=== PATIENT | female | born 1940 | race Caucasian/White ===

== ENCOUNTER 2016-12-17 07:59 | Inpatient (IN) | payer MEDICARE, OTHER ==
[~2016-12-17 07:59] MED LIST: MORPHINE SULFATE 15 MG TABLET.SA PO PRN; ceFAZolin SODIUM 1 GM VIAL IV PRN
[2016-12-17] MEDS ORDERED: FLU VACC QS2017-18(6MOS UP)/PF 60 MCG/0.5 ML SYRINGE IM ONE (08:23)
--- NOTE | 2016-12-17 08:28 | PREOP NOTE ---
Preoperative Progress Note - Preoperative Changes Changes to Preop Condition?: No Changes
[2016-12-17] MEDS: RINGER'S SOLUTION,LACTATED 1,000 ML IV PRN ×2 (08:31→09:35)
[2016-12-17] MEDS ORDERED: RINGER'S SOLUTION,LACTATED 1,000 ML IV ONE ×2 (10:10→10:50)
[2016-12-17] MEDS: TRANEXAMIC ACID 1,000 MG in NORMAL SALINE 100 ML IV PRN ×2 (11:05→11:10)
[2016-12-17] MEDS: ROPIVACAINE HCL/PF 100 MG, EPINEPHrine 0.2 MG, KETOROLAC TROMETHAMINE 30 MG in NORMAL S... IJ PRN ×2 (11:10→11:12)
[2016-12-17] MEDS ORDERED: ONDANSETRON HCL/PF 2 MG/ML VIAL IV PRN (11:45)
[2016-12-17] MEDS ORDERED: diphenhydrAMINE HCL 50 MG/ML VIAL IV PRN (11:45)
[2016-12-17] MEDS ORDERED: PROMETHAZINE HCL 5 MG in DEXTROSE 5 % IN WATER 50 ML IV PRN ×2 (11:45)
[2016-12-17] MEDS ORDERED: ZOLPIDEM TARTRATE 5 MG TABLET PO PRN (11:45)
[2016-12-17] MEDS ORDERED: ACETAMINOPHEN 500 MG TABLET PO PRN (11:45)
[2016-12-17] MEDS ORDERED: HYDROmorphone HCL 1 MG/ML DISP.SYRIN IV PRN (11:45)
[2016-12-17] MEDS ORDERED: MAG HYDROX/ALUMINUM HYD/SIMETH 30 ML UDC PO PRN (11:45)
[2016-12-17] MEDS ORDERED: MAGNESIUM HYDROXIDE 30 ML UDC PO PRN (11:45)
--- NOTE | 2016-12-17 11:49 | OR ---
Operative Report - Dictated Report Narrative: Date: 12/17/2016 Preoperative diagnosis: Right Knee degenerative joint disease. Postoperative diagnosis: Right Knee degenerative joint disease. Procedure: Right Total knee arthroplasty. Surgeon: Edwardo Hernandez M.D. [employer]orative Greens Cutter: Asim Soliman PA-C Anesthesia: Spinal with regional block and local periarticular joint injection. Complications: None Specimens: Bone for disposal. Estimated blood loss: Minimal. Tourniquet time: 92 Minutes at 325 millimeters of mercury. Retained implants: Depuy Attune size 7 right lugged cemented posterior stabilized femoral component. Size 6 fixed-bearing cemented tibial platform. 7 by 5 millimeter posterior stabilized cross-linked tibial insert. 38 millimeter medialized patella button. Indications: Mrs. Hurtado is a 76-year-old female who has had long-standing right knee pain and arthrosis. This patient was followed in my clinic for period of time with significant complaints of right knee pain consistent with arthritic changes. She had failed conservative measures including, but not limited to, activity modification, passage of time, medications, and other conservative measures. Patient wished to proceed with surgical treatment. The risks, benefits, and alternatives were discussed in clinic. The risks of , blood clots, bleeding, infection, nerve/tendon blood vessel/ injury, malposition of components, intraoperative fracture, postoperative limited range of motion, persistent pain, failure of components, and need for additional procedures. Patient wished to proceed consent was obtained after answering all questions. Procedure: After marking the correct extremity on the floor, the patient was taken to the operating room. A timeout was performed. IV antibiotics consisting of Ancef were administered prior to the procedure. A regional followed by spinal anesthetic was induced by anesthesia, per my request, on the operative table with all bony prominences well-padded. Vera catheter was placed, and a bump was placed under the operative side buttock. SCDs and KETTY hose were utilized on the nonoperative leg. A well-padded tourniquet was applied to the operative thigh. The operative leg was then pre-scrubbed with alcohol prepped, and draped in a standard sterile fashion. After exsanguinating the extremity with an Esmarch bandage, the tourniquet was inflated. After marking out the anterior knee for standard incision centered over the patella, the skin was incised and dissected down to the joint retinaculum. The joint retinaculum was marked out as well as the horizontal axis of the patella, and a standard medial parapatellar arthrotomy was then made. The most proximal aspect of the quadriceps tendon and the patella tendon insertion were protected from release. A partial synovectomy was performed as well as a resection of the infrapatellar fat pad. The distal femoral fat pad proximal to the trochlea was also resected using cautery. The soft tissues were elevated off the medial aspect of the proximal tibia using a Leblanc elevator ensuring that we did not transect the medial collateral ligament. Upon initial evaluation range of motion was approximately 10 degrees to 130 degrees of flexion. There were signs of advanced arthrosis in the medial, lateral, and patellofemoral joint spaces. There were large marginal osteophytes which were removed with a rongeur. The knee was hyperflexed and the patella was tucked laterally. Protecting the surrounding soft tissues with Homans, an entry drill was placed down the femoral canal using Whitesides line for guidance into the entry point. The intramedullary femoral alignment neema was utilized in order to cut the distal femur in 5 degrees of valgus resecting 12 millimeters of bone. Next the distal femur was sized to a size 7. A posterior referencing guide was utilized to place the distal femoral cutting block in 3 degrees of external rotation. This was pinned into place. The rotation was confirmed both visually and based on anatomic landmarks. The 4 in 1 cutting jig of the appropriate size was utilized in order to make all bony cuts. The angle wing was used to ensure no notching. Retractors were utilized in order to protect surrounding soft tissues. This cut did not result in any excessive notching. We then cut the box centered over the distal femur. This allowed for resection of the anterior and posterior cruciate ligaments. I then turned my attention to the preparation of the tibia. Using an extra medullary tibial alignment neema, 4 millimeters of bone was resected off the medial articular surface. This was made perpendicular to the mechanical axis of the joint with the alignment neema centered over the ankle mortise. The alignment neema was checked and was noted to be parallel to the mechanical axis, centered over the medial one third of the tibial tubercle, paralleling the anterior surface of the tibia. We then turned our attention to the remaining meniscus and soft tissues. These were removed while protecting the surrounding ligaments and soft tissues. The marginal osteophytes off the anterior, posterior, medial, lateral aspects of the femur and tibia were removed. The tibia was sized out to a size 6. Next the tibia was drilled and punched in an externally rotated position. Next the trial femur and a series of tibial inserts were utilized in order to allow for full extension and maximal flexion. It was found that a 5 millimeter insert gave the best range of motion and stability at multiple flexion points as well as at full extension there was less than 2 mm of gapping both medially and laterally. There is minimal anterior translation with the knee at 90 degrees of flexion and no signs of being able to dislocate the knee. The patella was then prepared. The initial thickness was 21 millimeters. This was reamed down to 11 millimeters parallel to the anterior surface of the patella. It was sized out to a size 38 medialized patella button. This was then drilled and trialed. Without any medial restraint the patella tracked appropriately and did not sublux or dislocate. At this point, it was felt these were the appropriate sized implants, and all trials were removed. The standard periarticular joint injection consisting of ropivacaine, Toradol, and epinephrine were injected into the periarticular joint tissues. The bony surfaces were thoroughly irrigated with a pulsatile- suction saline irrigation device. A bone plug from the prior resected anterior chamfer cut was placed into the drill hole at the distal femur. The bony surfaces were then dried in preparation for placement of the implants. The cement was vacuum mixed per the grape cutter's instructions. The cement was placed on the dry bony surfaces and posterior aspect of the implants. The implants were impacted into place, removing all extruded cement. At this point anesthesia administered tranexamic acid per protocol intravenously. The knee was placed in extension with axial loading with the trial insert while the cement cured. Once the cement cured, all remaining extruded cement was removed. The knee was placed through a range of motion with the trial insert to ensure appropriate range of motion and stability. Final range of motion was approximately 0 to 120 degrees. The knee was again thoroughly irrigated with pulsatile saline lavage. The final polyethylene insert was then impacted into place ensuring no retained soft tissues. The remaining periarticular joint injection was injected. A medium Hemovac drain was placed exiting superior laterally. The knee was then placed over a triangle and the arthrotomy was closed with interrupted #1 Vicryl after thoroughly irrigating the joint. The deep and subcutaneous tissues were closed with interrupted 0 and 3-0 Vicryl respectively. Skin was closed with a running subcutaneous 3-0 Monocryl and Prineo Dermabond dressing. 4 x 4's, Sof-Rol, and a full leg Evgeny wrap were applied. All sponge, needle, blade, and instrument counts were correct prior to closing the wounds. Postoperative condition: The patient was awoken and transferred to the postanesthesia care unit in stable condition. Plan is to be admitted to the inpatient medical/surgical floor postoperatively for 24 hours of IV antibiotics , physical therapy, occupational therapy, and medical comanagement. Patient will be weightbearing as tolerated with range of motion as tolerated. DVT prophylaxis will be with SCDs, KETTY hose, and pharmacological anticoagulation. Anticipated hospital stay is approximately 2-4 days.
[2016-12-17] MEDS: DEXTROSE 5%-LACTATED RINGERS 1,000 ML IV PRN ×2 (12:52→22:12)
[2016-12-17] MEDS: KETOROLAC TROMETHAMINE 15 MG/ML VIAL IV SCH ×2 (12:53→17:51)
[2016-12-17] MEDS: ceFAZolin SODIUM 1 GM in DEXTROSE 5 % IN WATER 100 ML IV SCH ×4 (13:56→19:44)
[2016-12-17] MEDS: MORPHINE SULFATE 15 MG TABLET.SA PO SCH (20:42)
[2016-12-17] MEDS: SENNOSIDES/DOCUSATE SODIUM 1 TAB TABLET PO SCH (20:43)
[2016-12-18] MEDS: KETOROLAC TROMETHAMINE 15 MG/ML VIAL IV SCH ×4 (00:20→20:03)
[2016-12-18] MEDS: ceFAZolin SODIUM 1 GM in DEXTROSE 5 % IN WATER 100 ML IV SCH ×2 (01:27)
[2016-12-18 05:47] LABS: Hematocrit 33.1 % (37.0-47.0); Hemoglobin 10.6 gm/dL (12.5-16.0); Mean Cell Volume 89.9 fl (78-100); Mean Corpuscular Hemoglobin 28.8 pg (27-31); Mean Platelet Volume 9.9 fl (6.0-9.5); Platelet Count 223 K/mm3 (150-450); Red Blood Count 3.68 M/mm3 (4.2-5.4); Red Cell Distribution Width 12.9 % (11.5-14.0); White Blood Count 7.9 K/mm3 (4.0-10.5)
[2016-12-18 06:00] LABS: Anion Gap 8.8 mmol/L (6.8-13.8); BUN/Creatinine Ratio 11.5 (9.0-21.6); Carbon Dioxide 28.7 mmol/L (24-32.6); Estimated Creat Clear 60.6; Potassium 4.5 mmol/L (3.4-4.6)
[2016-12-18] MEDS: LEVOTHYROXINE SODIUM 75 MCG TABLET PO SCH (06:44)
--- NOTE | 2016-12-18 07:59 | PN ---
Subjective - Date and Time Seen Date: 12/18/16 Time: 07:57 Subjective Narrative: Subjective: Reports pain is well-controlled. Was able to get to the chair with therapy. Pain is well-controlled. Voiding without any complications. Tolerating by mouth intake. Denies any nausea or vomiting. Denies calf pain. Slept well. Physical exam: Alert and oriented to person, place and time Right lower Extremity: Palpable dorsalis pedis pulse. Sensation grossly intact to light touch. Dressings clean and dry. Able to flex and extend ankle and toes. No excessive drainage. Calf and thigh are soft and nontender. Assessment: Postop day 1 status post right total knee arthroplasty. Plan: Continue with physical and occupational therapy weightbearing as tolerated. Continue with anticoagulation. 24 hours postoperative prophylactic antibiotics. Pain control with goal to rely on oral medications. Continue bowel regimen. Will need 6 weeks with walker or assitive device to protect joint while ambulating during the recovery process. Discharge planning. Discontinue drain and Vera catheter. Repeat labs in a.m. Objective - Vitals Vitals: Last Vital Signs Temp 36.5 C 12/18/16 07:02 Pulse 72 12/18/16 07:02 Resp 18 12/18/16 07:02 BP 129/62 12/18/16 07:02 Pulse Ox 99 12/18/16 07:02 - Abnormal Lab Findings Abnormal Lab Findings: Abnormal Lab Results 12/18/16 12/18/16 Range/Units 05:20 05:20 RBC 3.68 L (4.2-5.4) M/mm3 Hgb 10.6 L (12.5-16.0) gm/dL Hct 33.1 L (37.0-47.0) % MPV 9.9 H (6.0-9.5) fl Sodium 143 H (132-142) mmol/L Plasma Sodium 143 H (130-142) mmol/L Chloride 110 H (97-106) mmol/L Random Glucose 114 H (70-110) mg/dL Cauti Physician Documentation - Urinary Catheter Management Urethral (Vera) Date of Insertion: 12/17/16 Time of Insertion: 10:05 Assessment/Plan - Problems/Diagnosis (1) Status post total right knee replacement Problem: Acute (2) Acute blood loss anemia Problem: Acute (3) Hyperlipidemia Problem: Chronic (4) Hypothyroid Problem: Chronic
[2016-12-18] MEDS: MORPHINE SULFATE 15 MG TABLET.SA PO SCH ×2 (08:12→20:55)
[2016-12-18] MEDS: POTASSIUM CHLORIDE 10 MEQ TABLET.SA PO SCH (08:13)
[2016-12-18] MEDS: FUROSEMIDE 20 MG TABLET PO SCH (08:13)
[2016-12-18] MEDS: LORATADINE 10 MG TABLET PO SCH (08:13)
--- NOTE | 2016-12-18 10:09 | OR ---
Anesthesia Procedure Note - Anesthesia Procedure Note Narrative: Vital Signs - Last Taken Temp 36.5 C 12/18/16 07:02 Pulse 72 12/18/16 08:13 Resp 18 12/18/16 07:02 BP 129/62 12/18/16 08:13 Pulse Ox 99 12/18/16 07:02 O2 Oxygen Delivery Method Room Air 12/18/16 10:06 ANESTHESIA PROCEDURE NOTE Date of procedure: 12/17/2016. Time of procedure: . Performed by: Nilson Narvaez CRNA Property Utilization Officer: Kiera Levi RN . Preprocedure diagnosis: Right total knee arthroplasty. Desire for postoperative analgesia.. Post procedure diagnosis: Same. Procedure: Right ultrasound-guided femoral nerve block. Indications: Postoperative analgesia.. Findings: Patient brought to operating room #[address] in a supine position. Patient was sedated. Right femoral groin area was prepped with ChloraPrep. Right femoral nerve was identified using ultrasound. 22-gauge 2 inch Stimuplex regional block needle was directed through ultrasound guidance and the nerve stimulator to confirm needle placement near the femoral nerve. A total of 30 mL of 0.25% Marcaine with epinephrine 1 200,000 was injected around the femoral nerve. Adequate spread of local anesthetic was observed. EBL: Minimal. Fluids: N/A. Specimen: N/A. Post procedure condition: The patient tolerated the procedure well. No complications were noted. Thank you for this consultation Nilson Narvaez CRNA
[2016-12-18] MEDS: ENOXAPARIN SODIUM 40 MG/0.4 ML SYRG SC SCH (11:52)
--- NOTE | 2016-12-18 15:31 | PN ---
Subjective - Date and Time Seen Date: 12/18/16 Time: 14:51 Subjective Narrative: POD #1 Patient seen at bedside at approximately 8:45 AM. Doing well, pain under control, did not any PRN meds; had ambulated 30 feet last evening and 50 feet this morning. Objective - Review of Systems Respiratory: Denies: Cough, Shortness of Breath Cardiac: Denies: Chest Pain, Edema Abdominal: Denies: Nausea, Vomiting - Vitals Vitals: Vital Signs Temp 37.1 C 12/18/16 14:43 Pulse 72 12/18/16 14:43 Resp 18 12/18/16 14:43 BP 93/71 12/18/16 14:43 Pulse Ox 97 12/18/16 14:43 - Abnormal Lab Findings Abnormal Lab Findings: Laboratory Tests 12/18/16 05:20 WBC 7.9 Hgb 10.6 L Hct 33.1 L Plt Count 223 12/18/16 05:20 Plasma Sodium 143 H Potassium 4.5 D Chloride 110 H Carbon Dioxide 28.7 BUN 9 D Creatinine 0.78 Est GFR (Non-Af Amer) 77 Random Glucose 114 H Calcium 9.0 - Exam Constitutional: Present: Elderly - alert and oriented x3 , in NAD ENT Exam: Present: hearing grossly normal Neck: Present: normal inspection, trachea midline Respiratory: Present: lungs clear, normal breath sounds Cardiovascular/Chest: Present: regular rate, rhythm. Absent: tachycardia Abdomen: Present: Normal bowel sounds, soft, nontender Extremity: Present: normal inspection, other - able to move all toes. Absent: no pedal edema Skin Exam: Present: warm/dry, pallor Cauti Physician Documentation - Urinary Catheter Management Urethral (Vera) Date of Insertion: 12/17/16 Time of Insertion: 10:05 Date of Removal: 12/18/16 Time of Removal: 09:30 Assessment/Plan Plan Narrative: 1. S/P RT total knee arthroplasty: POD#1. doing well. Pain well controlled. Ambulating well. Possible discharge on 12/19/16. 2. Acute blood loss anemia: H/H at 10.6/33.1 today. Patient is hemodynamically stable and asymptomatic. 3. Hypothyroidism: Continue levothyroxine at 75 g daily. 4. Hyperlipidemia: Unable to tolerate statins.
[2016-12-18] MEDS: oxyCODONE HCL/ACETAMINOPHEN 1 TAB TABLET PO PRN ×2 (16:35→20:55)
[2016-12-18] MEDS: SENNOSIDES/DOCUSATE SODIUM 1 TAB TABLET PO SCH (20:54)
[2016-12-19] MEDS: KETOROLAC TROMETHAMINE 15 MG/ML VIAL IV SCH ×2 (00:10→07:51)
[2016-12-19 06:18] LABS: Hematocrit 33.9 % (37.0-47.0); Hemoglobin 10.8 gm/dL (12.5-16.0); Mean Cell Volume 90.4 fl (78-100); Mean Corpuscular Hemoglobin 28.8 pg (27-31); Mean Corpuscular Hgb Conc 31.9 g/dl (32-36); Mean Platelet Volume 9.7 fl (6.0-9.5); Platelet Count 245 K/mm3 (150-450); Red Blood Count 3.75 M/mm3 (4.2-5.4); Red Cell Distribution Width 12.9 % (11.5-14.0); White Blood Count 10.2 K/mm3 (4.0-10.5)
[2016-12-19 06:30] LABS: Anion Gap 5.6 mmol/L (6.8-13.8); Calcium * 9.4 mg/dL (7.9-10.9); Carbon Dioxide 31.7 mmol/L (24-32.6); Potassium 4.3 mmol/L (3.4-4.6)
[2016-12-19] MEDS: LEVOTHYROXINE SODIUM 75 MCG TABLET PO SCH (07:50)
[2016-12-19 08:11] VITALS: BP 101/49
[2016-12-19] MEDS: POTASSIUM CHLORIDE 10 MEQ TABLET.SA PO SCH (08:27)
[2016-12-19] MEDS: LORATADINE 10 MG TABLET PO SCH (08:27)
[2016-12-19] MEDS: MORPHINE SULFATE 15 MG TABLET.SA PO SCH (08:27)
[2016-12-19] MEDS: oxyCODONE HCL/ACETAMINOPHEN 1 TAB TABLET PO PRN (08:27)
[2016-12-19] MEDS: FUROSEMIDE 20 MG TABLET PO SCH (08:28)
[2016-12-19] MEDS ORDERED: HYDROcodone/ACETAMINOPHEN 1 EACH TABLET PO PRN (10:13)
--- NOTE | 2016-12-19 10:20 | DS ---
(1) Status post total right knee replacement Problem: Acute (2) Acute blood loss anemia Problem: Acute (3) Hyperlipidemia Problem: Chronic (4) Hypothyroid Problem: Chronic Description of Stay: Mrs. Hurtado was admitted to the floor after undergoing right total knee arthroplasty. Tolerated this well. Was admitted to the floor postoperatively for 24 hours of IV antibiotics, pain control, medical comanagement, and occupational and physical therapy. OT and PT were consulted to assist with activities of daily living and ambulation. Was made weightbearing as tolerated with range of motion as tolerated. Pain was initially controlled with IV regimen. This was transitioned to oral once tolerating a by mouth intake. Was resumed on home diet and medications. Had a Vera catheter inserted and the operating room which was discontinued on postoperative day 1. A drain was placed intraoperatively into the knee which was discontinued on postoperative day 1. Lovenox SCD and KETTY hose were utilized for DVT prophylaxis. Vital signs remained stable to the hospital course. Serial labs were obtained which showed a final hemoglobin of 10.8 grams. BMP was reviewed and was stable. Physical examination throughout the hospital course showed an extremity that had sensation that was intact to light touch, palpable pulses, a benign wound, motor intact to the toes, ankle, and knee. Knee range of motion was approximately 5 degrees to 75 degrees. Once an oral pain regimen was tolerated and physical therapy goals were met, it was felt that she was stable for discharge to home. Instructions: Continue with weightbearing as tolerated and range of motion as tolerated. It is okay to shower and get the wound wet as long as there is no drainage from the wound. Do not bathe or soak the wound. If there is any drainage from the wound keep the wound clean and dry and cover with dry gauze and tape. Change every 2-3 days as needed if there is any drainage. Cover wound while showering if there is any drainage. Continue with physical therapy. Resume home diet. Report any fever over 101.5 Fahrenheit, uncontrolled pain, increased drainage, foul odor of drainage, new or increased calf pain or shortness of breath, or any other significant complaints. A 325mg dialy aspirin will be started after finishing anticoagulation if not allergic. Continue with KETTY hose on the operative extremity until instructed otherwise. No driving until instructed otherwise. Follow up in approximately 10-14 days. Procedures Performed: see notes below List Procedures: Right total knee arthroplasty Discharge Disposition: Home self care Disposition: Home self-care Condition: Good Discharge Activity: Activity as tolerated, Weight bearing Discharge Diet: General/regular food Long Term Therapy: Physicial Therapy Referrals: Fatoumata Rockwell MD [Primary Care Provider] - Additional Patient Instructions (free text): Physical Therapy rehab at [facility] Outpt therapy on Saturday12/21/16 at 9:45am. Follow-up in the office with Dr. Hernandez on Saturday01/01/17@10:45am. Prescriptions (Any new or edited meds): Enoxaparin Sodium [Lovenox] 40 mg SC Q24H #7 disp.syrin HYDROcodone/ACETAMINOPHEN [[place] 5-325] 1 each PO Q3H PRN #60 tablet PRN Reason: Moderate Pain Morphine Sulfate [Ms Contin] 15 mg PO Q12H #20 tablet.sa Sennosides/Docusate Sodium [Senokot-S] 2 tab PO HS #60 tablet Complete Home Medications List: Complete Home Medication List: Furosemide [Lasix] 20 mg PO DAILY 03/17/13 Levothyroxine Sodium [Synthroid] 75 mcg PO DAILY 03/17/13 Potassium Chloride [Klor-Con M10] 10 meq PO DAILY 03/17/13 Cetirizine HCl [Zyrtec] 10 mg PO DAILY 12/17/16 Enoxaparin Sodium [Lovenox] 40 mg SC Q24H #7 disp.syrin 12/19/16 HYDROcodone/ACETAMINOPHEN [[place] 5-325] 1 each PO Q3H PRN #60 tablet 12/19/16 Morphine Sulfate [Ms Contin] 15 mg PO Q12H #20 tablet.sa 12/19/16 Sennosides/Docusate Sodium [Senokot-S] 2 tab PO HS #60 tablet 12/19/16 Amb Orders for Discharge: PT Evaluation and Treatment Facility: [facility], Location: Rehabilitation Services
[2016-12-19] MEDS: ENOXAPARIN SODIUM 40 MG/0.4 ML SYRG SC SCH (13:05)
--- NOTE | 2016-12-19 15:47 | PN ---
Subjective - Date and Time Seen Date: 12/19/16 Time: 08:45 Subjective Narrative: patient seen at 8:45 AM at bedside. Ambulated well last night w/o problems; vomited x 2 with oxycodone/acetaminophen. Patient has taken Tylenol for pain now. Anticipating to go home Objective - Review of Systems Generalized/Overall Review: Denies: Weakness, Chills, Fever Respiratory: Denies: Cough, Shortness of Breath Cardiac: Denies: Chest Pain, Edema Abdominal: Reports: Nausea, Vomiting - Vitals Vitals: Vital Signs Temp 35.9 C L 12/19/16 09:00 Pulse 66 12/19/16 09:00 Resp 16 12/19/16 09:00 BP 101/49 12/19/16 09:00 Pulse Ox 99 12/19/16 09:00 - Abnormal Lab Findings Abnormal Lab Findings: Laboratory Tests 12/19/16 06:14 WBC 10.2 D Hgb 10.8 L Hct 33.9 L Plt Count 245 12/19/16 06:14 Plasma Sodium 139 Potassium 4.3 Chloride 106 Carbon Dioxide 31.7 BUN 12 Creatinine 0.86 Est GFR (Non-Af Amer) 68 Random Glucose 115 H Calcium 9.4 - Exam Constitutional: Present: Elderly - alert, oriented, in no acute distress. Neck: Present: normal inspection, trachea midline Respiratory: Present: lungs clear, normal breath sounds. Absent: no accessory muscle use Cardiovascular/Chest: Present: regular rate, rhythm. Absent: tachycardia Abdomen: Present: Normal bowel sounds, soft, nontender Extremity: Present: normal inspection, no pedal edema, other - all to wiggle all toes. Skin Exam: Present: warm/dry, pallor Eye contact: Present: cooperative, good eye contact, normal speech Cauti Physician Documentation - Urinary Catheter Management Urethral (Vera) Date of Insertion: 12/17/16 Time of Insertion: 10:05 Date of Removal: 12/18/16 Time of Removal: 09:30 Assessment/Plan Plan Narrative: 1. S/P RT total knee arthroplasty: POD#2. doing well. Could not tolerate oxycodone/acetaminophen [had vomiting with it]. 2. Acute blood loss anemia: H/H at 10.8, but is lethargic, not stay in the morning patient's Fridays33.9 today. Patient is hemodynamically stable and asymptomatic. 3. Hypothyroidism: Continue levothyroxine at 75 g daily. 4. Hyperlipidemia: Unable to tolerate statins.
== END 2016-12-19 13:43 | disposition home or self-care (01) | DRG 470 ==
LOC: MS 07:59
PROVIDERS: ADMIT Orthopaedic Surgery; ATTEND Orthopaedic Surgery
PROC: 0SRC0J9 Replacement of Right Knee Joint with Synthetic Substitute, Cemented, Open Approach (ICD-10-PCS; principal; 2016-12-17 11:30)
DX: M17.0 Bilateral primary osteoarthritis of knee (principal); D62 Acute posthemorrhagic anemia; E78.5 Hyperlipidemia, unspecified; E03.9 Hypothyroidism, unspecified; Z79.82 Long term (current) use of aspirin; Z23 Encounter for immunization
CPT/HCPCS: 27447; 36415; 73560; 80048; 85027; 90686; 97110; 97116; 97162; 97165; 97535; G0008; J2405

== ENCOUNTER 2016-12-23 18:41 | Inpatient (IN) | payer MEDICARE, OTHER ==
[2016-12-23] MEDS ORDERED: NORMAL SALINE 1,000 ML IV ONE (19:03)
[2016-12-23] MEDS ORDERED: ONDANSETRON HCL/PF 2 MG/ML VIAL IV ONE (19:03)
--- NOTE | 2016-12-23 19:09 | ERNOTE ---
Medical Problem HPI - Narrative Date of Service: 12/23/16 - General Chief Complaint: Nausea/Vomiting Time Seen by Provider: 12/23/16 18:57 Source: patient, family - Immun/Allergies/Home Medications Immunizations: IMMUNIZATION HX Immunizations Up to Date Yes History of Influenza Vaccine Yes Allergies/Adverse Reactions: Allergies oxycodone [From Percocet] Allergy (Mild, Verified 12/23/16 18:50) Nausea Calcium Channel Blocking Agent Dilt [Calcium Channel Blocking Agents-Dieudonne] Adverse Reaction (Intermediate, Verified 12/23/16 18:49) EDEMA metoprolol tartrate [From Lopressor] Adverse Reaction (Intermediate, Verified 18:49) WHEEZING pravastatin Adverse Reaction (Mild, Verified 12/23/16 18:49) MUSCLE ACHES simvastatin [From Zocor] Adverse Reaction (Mild, Verified 12/23/16 18:49) Muscle Pain Home Medications: HOME MEDICATIONS Furosemide [Lasix] 20 mg PO DAILY 03/17/13 [Last Taken 12/17/16 0600] Levothyroxine Sodium [Synthroid] 75 mcg PO DAILY 03/17/13 [Last Taken 12/16/16] Potassium Chloride [Klor-Con M10] 10 meq PO DAILY 03/17/13 [Last Taken 12/16/16] Cetirizine HCl [Zyrtec] 10 mg PO DAILY 12/17/16 [Last Taken Unknown] Enoxaparin Sodium [Lovenox] 40 mg SC Q24H #7 disp.syrin 12/19/16 [Last Taken Unknown] HYDROcodone/ACETAMINOPHEN [[place] 5-325] 1 each PO Q3H PRN #60 tablet 12/19/16 [ Last Taken Unknown] Morphine Sulfate [Ms Contin] 15 mg PO Q12H #20 tablet.sa 12/19/16 [Last Taken Unknown] Sennosides/Docusate Sodium [Senokot-S] 2 tab PO HS #60 tablet 12/19/16 [Last Taken Unknown] Promethazine HCl [Phenergan (Promethazine)] 25 mg PO Q6H PRN 12/23/16 [Last Taken Unknown] - History of Present History Narrative: This is a 76-year-old female who comes to the emergency department with nausea and vomiting since Saturday. Patient says that she had a total knee replacement on Saturday. She was doing well postoperatively started feeling a bit nauseated on Saturday by Saturday she was having multiple episodes of bilious and nonbilious vomiting. She says nothing tasted right and more than half the time when she ate and it up vomiting it back up. This was continued and this evening she ate some chicken noodle soup and had 2 episodes of projectile bilious. She denies a fever she complains of diffuse abdominal pain. Hurts a bit more when she walks around. Nothing makes it better. Bowels are moving. No urinary symptoms no chest pain or shortness of breath. She is aware of Review of Systems - Review of Systems Constitutional: Present: no symptoms reported EYE: Present: no symptoms reported ENT: Present: no symptoms reported Respiratory: Present: no symptoms reported Cardiology: Present: no symptoms reported Gastrointestinal/Abdominal: Present: nausea, vomiting, abdominal pain, eating less, drinking less Genitourinary: Present: no symptoms reported Musculoskeletal: Present: no symptoms reported Skin: Present: no symptoms reported Neurological: Present: no symptoms reported Endocrine: Present: no symptoms reported Hematologic/Lymphatic: Present: no symptoms reported Psych: Present: no symptoms reported All Other Systems: All systems neg except as marked - Patient's Past Medical History Patient History - Medical: Chronic Pain, Hypothyroidism, Osteoarthritis Patient History - Cardiac/Respiratory: Atrial Fibrillation, Hyperlipidemia Patient History - Cancer: No Hx of Cancer Patient History - Surgical Procedures: Cataracts, Colonoscopy, Hysterectomy Patient History - Other: None - Family History Mother Family History - Medical: , No pertinent hx Family History - Cardiac/Respiratory: Hypertension Family History - Cancer: Breast Father Family History - Medical: Family History - Cardiac/Respiratory: Hypertension Family History - Cancer: No pertinent family hx Brother Family History - Medical: , No pertinent hx Family History - Cardiac/Respiratory: Hypertension Family History - Cancer: Kidney Sister Family History - Medical: No pertinent hx Family History - Cardiac/Respiratory: Hypertension Family History - Cancer: No pertinent family hx - Social History Living Situations: home Abuse History: No History of abuse Psych History: No pertinent hx Smoking Status: Never smoker - Immunizations Immunizations Up to Date: Yes History of Influenza Vaccine: Yes Physical Exam - Physical Exam General Appearance: Present: wd/wn, alert, no apparent distress Head Exam: Present: normal inspection, no evidence of injury Eye Exam: Normal inspection: bilateral, PERRL: bilateral, EOMI: bilateral Ears, Nose, Throat: Present: normal ENT inspection, normal pharynx Neck: Present: normal inspection, nontender Respiratory: Present: no respiratory distress, normal breath sounds, lungs clear Cardiovascular/Chest: Present: regular rate, rhythm, no murmur Gastrointestinal/Abdominal: Present: other - decreased bowel sounds. Nondistended mildly tender especially in bilateral upper quadrants no definite rebound. Equivocal voluntary guarding Back Exam: Present: normal inspection, normal range of motion Extremity Exam: Present: normal inspection, non-tender, no edema Neurological Exam: Present: alert, oriented, normal mood/affect Skin Exam: Present: normal color, warm/dry Lymphatic Exam: Present: no adenopathy ED Progress - Results and Orders Patient's Lab Results:: I have reviewed the patient's lab results. - Vital Signs Patient's Vital Signs:: I have reviewed the patient's vital signs. Vital Signs: Vital Signs 12/23/16 18:45 Temperature 37.1 C Pulse Rate 102 H Respiratory 14 Rate Blood Pressure 166/87 O2 Sat by Pulse 98 Oximetry - CT/Ultrasound CT/Ultrasound Narrative: CT scan demonstrates a small bowel obstruction with focal transition point in the mid ileum also note is made of a 3 x 4 x 4.5 cm pancreatic head mass concerning for neoplasm. - Progress/Reassessment Chief Complaint: Nausea/Vomiting Progress:: Improved Plan - Plan Plan: I reviewed the patient's CAT scan with Dr. Escalante in. He agrees with placement of the NG tube. He says it doesn't quite make sense because the patient is still having bowel movements. I've spoken with Dr. Levy from the hospitalist who will admit the patient. Dr. Yang will see in consultation tomorrow. Departure Clinical Impression: Small bowel obstruction - Departure Disposition: [facility] Condition: Fair
[2016-12-23 19:20] LABS: Hematocrit 38.5 % (37.0-47.0); Hemoglobin 12.5 gm/dL (12.5-16.0); Mean Cell Volume 88.3 fl (78-100); Mean Corpuscular Hemoglobin 28.7 pg (27-31); Mean Corpuscular Hgb Conc 32.5 g/dl (32-36); Mean Platelet Volume 9.6 fl (6.0-9.5); Neutrophil # 8.2 K/mm3 (1.3-6.0); Neutrophil % 76.2 % (42-75.0); Platelet Count 399 K/mm3 (150-450); Red Blood Count 4.36 M/mm3 (4.2-5.4); Red Cell Distribution Width 12.6 % (11.5-14.0); White Blood Count 10.8 K/mm3 (4.0-10.5)
[2016-12-23] MEDS ORDERED: ONDANSETRON HCL/PF 2 MG/ML VIAL ONE (19:25)
[2016-12-23 19:38] LABS: ALT 171 U/L (19-67); AST 143 U/L (0-48); Albumin * 3.3 gm/dl (3.4-5.0); Alkaline Phosphatase * 180 U/L (50-170); BUN/Creatinine Ratio 19.6 (9.0-21.6); Bilirubin, Total 0.8 mg/dL (0.0-1.1); Blood Urea Nitrogen 18 mg/dL (3-23); Ca. Corrected For Albumin 9.7 mg/dL (8.4-10.2); Calcium * 9.5 mg/dL (7.9-10.9); Carbon Dioxide 29.8 mmol/L (24-32.6); Chloride 101 mmol/L (97-106); Glucose * 139 mg/dL (70-110); Lipase 183 U/L (73-393); Potassium 3.8 mmol/L (3.4-4.6); Sodium 140 mmol/L (132-142); Total Protein 7.2 gm/dL (6.2-8.2); Troponin I Less than 0.017 ng/ml (0.00-0.10)
[2016-12-23] MEDS ORDERED: DIATRIZOATE MEGLUMINE, SODIUM 30 ML BTL ONE (19:57)
[2016-12-23] MEDS ORDERED: DIATRIZOATE MEGLUMINE, SODIUM 30 ML BTL PO ONE (19:58)
[2016-12-23] MEDS ORDERED: MORPHINE SULFATE 4 MG/ML SYRG IV ONE (21:59)
[2016-12-23] MEDS ORDERED: MORPHINE SULFATE 4 MG/ML SYRG ONE (22:02)
[2016-12-23 22:45] LABS: Urine Bilirubin 1 mg/dl (NEGATIVE); Urine Blood Negative /ul (NEGATIVE); Urine Ketone 15 mg/dL (NEGATIVE); Urine Nitrite Negative (NEGATIVE); Urine Protein 15 mg/dL (NEGATIVE); Urine Specific Gravity 1.015 SP.GR. (1.005-1.010); Urine Urobilinogen Normal (NORMAL)
[2016-12-23 22:59] LABS: Urine Appearance Clear; Urine Bacteria TRACE; Urine Color Dark Yellow; Urine Hyaline Cast 0-5 /LPF; Urine RBC None Seen /hpf (0-5); Urine WBC None Seen /hpf (0-5)
[2016-12-24] MEDS ORDERED: MORPHINE SULFATE 2 MG/ML DISP.SYRIN IV PRN (01:09)
[2016-12-24] MEDS: ONDANSETRON HCL/PF 2 MG/ML VIAL IV PRN (01:28)
[2016-12-24] MEDS: PANTOPRAZOLE SODIUM 40 MG in NORMAL SALINE 100 ML IV SCH ×2 (02:03→20:11)
[2016-12-24] MEDS: POTASSIUM CHLORIDE 20 MEQ in DEXTROSE 5%-NORMAL SALINE 990 ML IV SCH ×2 (02:05→11:15)
[2016-12-24] MEDS ORDERED: METOCLOPRAMIDE HCL 5 MG/ML VIAL IV PRN ×2 (05:44→09:09)
[2016-12-24] MEDS ORDERED: MORPHINE SULFATE 2 MG/ML DISP.SYRIN IV ONE (05:54)
[2016-12-24] MEDS: MORPHINE SULFATE 2 MG/ML DISP.SYRIN IV PRN ×3 (05:57→19:51)
--- NOTE | 2016-12-24 06:11 | HP ---
Chief Complaint - Chief Complaint Date of Service: 12/24/16 Time of Service: 01:00 Chief Complaint: Vomiting, abdominal pain History of Present Illness: 76 years old WF adm to the hospital from ER with reports of projectile vomiting , nausea and abdominal x 3 days. PMH significant for hyperlipidemia, hypothyroidism, A-fib ( S/P ablation), S/P Right knee arthroplasty ( On Lovenox with 3 dose remaining). pt she had Right knee replacement 12/17/16 and since she had been discharged, she had been unable to eat, having projectile vomiting , nausea, abdominal pain. She denies fever, chills, palpitation, chest pain, had bowel movement and + flatus. X-Ray ABD:ileus vs obstruction, there are numerous air fluid levels of dilated loops of bowel. Preliminary CT ABD:small bowel with a focal transition in the mid ileus consistent with bowel obstruction. There is a 2.9x 3.8x 4.5cm pancreatic head mass worrisome for neoplasm. Mild hepatic steatosis. ER consulted Dr pratt who will be following with patient. Plan of care discussed with pt, she verbalized understanding and agree. - Patient's Past Medical History Patient History - Medical: Chronic Pain, Hypothyroidism, Osteoarthritis Patient History - Cardiac/Respiratory: Atrial Fibrillation - ablation 12 yrs ago, Hyperlipidemia Patient History - Cancer: No Hx of Cancer Patient History - Surgical Procedures: Cataracts, Colonoscopy, Hysterectomy Patient History - Other: None - Family History Mother Family History - Medical: , No pertinent hx Family History - Cardiac/Respiratory: Hypertension Family History - Cancer: Breast Father Family History - Medical: Family History - Cardiac/Respiratory: Hypertension Family History - Cancer: No pertinent family hx Brother Family History - Medical: , No pertinent hx Family History - Cardiac/Respiratory: Hypertension Family History - Cancer: Kidney, Lung Sister Family History - Medical: No pertinent hx Family History - Cardiac/Respiratory: Hypertension Family History - Cancer: No pertinent family hx - Social History Living Situations: spouse Abuse History: No History of abuse Psych History: No pertinent hx Smoking Status: Never smoker Have you smoked in the past 12 months: No Do you dip or chew tobacco: No - Immunizations Immunizations Up to Date: Yes History of Influenza Vaccine: Yes Review Of Systems (GEN) - Review of Systems Generalized/Overall Review: Present: No Symptoms Reported EENTM: Present: No Symptoms Reported Respiratory: Present: Cough Cardiac: Present: No Symptoms Reported Abdominal: Present: Nausea, Vomiting Genitourinary: Present: No Symptoms Reported Musculoskeletal: Present: Joint Pain - right knee s/p arthroplasty Neurological: Present: No Symptoms Reported Skin: Present: No Symptoms Reported Endocrine: Present: No Symptoms Reported Allergies/Adverse Reactions: Allergies Allergy/AdvReac Type Severity Reaction Status Date / Time oxycodone [From Percocet] Allergy Mild Nausea Verified 12/23/16 18:50 Calcium Channel Blocking AdvReac Intermediate EDEMA Verified 12/23/16 18:49 Agent Dilt [Calcium Channel Blocking Agents-Dieudonne] metoprolol tartrate AdvReac Intermediate WHEEZING Verified 12/23/16 18:49 [From Lopressor] pravastatin AdvReac Mild MUSCLE Verified 12/23/16 18:49 ACHES simvastatin [From Zocor] AdvReac Mild Muscle Pain Verified 12/23/16 18:49 Home Medications: HOME MEDICATIONS Furosemide [Lasix] 20 mg PO DAILY 03/17/13 [Last Taken 12/17/16 0600] Levothyroxine Sodium [Synthroid] 75 mcg PO DAILY 03/17/13 [Last Taken 12/16/16] Potassium Chloride [Klor-Con M10] 10 meq PO DAILY 03/17/13 [Last Taken 12/16/16] Cetirizine HCl [Zyrtec] 10 mg PO DAILY 12/17/16 [Last Taken Unknown] Enoxaparin Sodium [Lovenox] 40 mg SC Q24H #7 disp.syrin 12/19/16 [Last Taken Unknown] HYDROcodone/ACETAMINOPHEN [[place] 5-325] 1 each PO Q3H PRN #60 tablet 12/19/16 [ Last Taken Unknown] Morphine Sulfate [Ms Contin] 15 mg PO Q12H #20 tablet.sa 12/19/16 [Last Taken Unknown] Sennosides/Docusate Sodium [Senokot-S] 2 tab PO HS #60 tablet 12/19/16 [Last Taken Unknown] Promethazine HCl [Phenergan (Promethazine)] 25 mg PO Q6H PRN 12/23/16 [Last Taken Unknown] Exam - Exam Vital Signs: Vital Signs - Last Taken Temp 36.9 C 12/24/16 04:19 Pulse 86 12/24/16 04:19 Resp 20 12/24/16 04:19 BP 148/68 12/24/16 04:19 Pulse Ox 97 12/24/16 04:19 Constitutional: Present: Alert, Oriented x3, Cooperative, Well developed, No distress ENT Exam: Present: other - nasal gastric tube Eye Exam: bilateral eye: normal inspection Neck: Present: full range of motion Back Exam: Present: normal inspection Breasts: Present: Exam deferred Respiratory: Present: chest non-tender, lungs clear, normal breath sounds, no respiratory distress Cardiovascular/Chest: Present: normal peripheral pulses, regular rate, rhythm, no chest tenderness, no edema Peripheral Pulses: dorsalis-pedis (R): 3+, dorsalis-pedis (L): 3+ Abdomen: Present: no rebound tenderness, tender, distended, hypoactive Extremity: Present: normal range of motion, non-tender, normal inspection, other - 12/17/16 s/p right knee replacement surgical site incision [employer] and D/I Skin Exam: Present: warm/dry Neurologic: Present: oriented x 3 Appearance: Present: appropriate appearance Eye contact: Present: cooperative, good eye contact Thoughts: Present: normal thought pattern Diagnostic Studies: Laboratory Results WBC 10.8 K/mm3 (4.0-10.5) H 12/23/16 19:10 RBC 4.36 M/mm3 (4.2-5.4) 12/23/16 19:10 Hgb 12.5 gm/dL (12.5-16.0) 12/23/16 19:10 Hct 38.5 % (37.0-47.0) 12/23/16 19:10 MCV 88.3 fl (78-100) 12/23/16 19:10 MCH 28.7 pg (27-31) 12/23/16 19:10 MCHC 32.5 g/dl (32-36) 12/23/16 19:10 RDW 12.6 % (11.5-14.0) 12/23/16 19:10 Plt Count 399 K/mm3 (150-450) 12/23/16 19:10 MPV 9.6 fl (6.0-9.5) H 12/23/16 19:10 Immature Gran % (Auto) 0.60 % (0.001-0.429) H 12/23/16 19:10 Immature Gran # (Auto) 0.07 K/mm3 (0.000-0.0310) H 12/23/16 19:10 Neutrophils % 76.2 % (42-75.0) H 12/23/16 19:10 Lymphocytes % 10.4 % (20-51) L 12/23/16 19:10 Monocytes % 11.8 % (0.0-9) H 12/23/16 19:10 Eosinophils % 0.6 % (0.0-3.0) 12/23/16 19:10 Basophils % 0.4 % (0.0-1.0) 12/23/16 19:10 Nucleated RBC % 0.0 k/mm3 (0-1) 12/23/16 19:10 Neutrophils # 8.2 K/mm3 (1.3-6.0) H 12/23/16 19:10 Lymphocytes # 1.1 k/mm3 (1.5-3.5) L 12/23/16 19:10 Monocytes # 1.3 k/mm3 (0.0-1.0) H 12/23/16 19:10 Eosinophils # 0.1 k/mm3 (0.0-0.7) 12/23/16 19:10 Absolute Basophils 0.0 k/mm3 (0.0-0.1) 12/23/16 19:10 Sodium 140 mmol/L (132-142) 12/23/16 19:10 Plasma Sodium 141 mmol/L (130-142) 12/23/16 19:10 Potassium 3.8 mmol/L (3.4-4.6) 12/23/16 19:10 Chloride 101 mmol/L (97-106) 12/23/16 19:10 Carbon Dioxide 29.8 mmol/L (24-32.6) 12/23/16 19:10 Anion Gap 13.0 mmol/L (6.8-13.8) 12/23/16 19:10 BUN 18 mg/dL (3-23) 12/23/16 19:10 Creatinine 0.92 mg/dL (0.4-1.4) 12/23/16 19:10 Est GFR (Non-Af Amer) 63 mL/min (60-130) 12/23/16 19:10 BUN/Creatinine Ratio 19.6 (9.0-21.6) 12/23/16 19:10 Random Glucose 139 mg/dL (70-110) H 12/23/16 19:10 Calcium 9.5 mg/dL (7.9-10.9) 12/23/16 19:10 Calcium Adj for Albumin 9.7 mg/dL (8.4-10.2) 12/23/16 19:10 Total Bilirubin 0.8 mg/dL (0.0-1.1) 12/23/16 19:10 AST 143 U/L (0-48) H 12/23/16 19:10 ALT 171 U/L (19-67) H 12/23/16 19:10 Alkaline Phosphatase 180 U/L (50-170) H 12/23/16 19:10 Troponin I Less than 0.017 ng/ml (0.00-0.10) 12/23/16 19:10 Total Protein 7.2 gm/dL (6.2-8.2) 12/23/16 19:10 Albumin 3.3 gm/dl (3.4-5.0) L 12/23/16 19:10 Lipase 183 U/L (73-393) 12/23/16 19:10 Urine Color Dark yellow 12/23/16 22:36 Urine Appearance Clear 12/23/16 22:36 Urine pH 6.0 pH (5.0-7.0) 12/23/16 22:36 Ur Specific [place] 1.015 SP.GR. (1.005-1.010) 12/23/16 22:36 Urine Protein 15 mg/dL (NEGATIVE) H 12/23/16 22:36 Urine Glucose (UA) Negative mg/dL (NEGATIVE) 12/23/16 22:36 Urine Ketones 15 mg/dL (NEGATIVE) 12/23/16 22:36 Urine Blood Negative /ul (NEGATIVE) 12/23/16 22:36 Urine Nitrate Negative (NEGATIVE) 12/23/16 22:36 Urine Bilirubin 1 mg/dl (NEGATIVE) H 12/23/16 22:36 Urine Ictotest Positive (NEGATIVE) H 12/23/16 22:36 Prot Sulfosalicylic Acd 1+ mg/dL (0) 12/23/16 22:36 Urine Urobilinogen Normal EU/dl (NORMAL) 12/23/16 22:36 Ur Leukocyte Esterase Negative /ul (NEGATIVE) 12/23/16 22:36 Urine RBC None seen /hpf (0-5) 12/23/16 22:36 Urine WBC None seen /hpf (0-5) 12/23/16 22:36 Ur Epithelial Cells 0-5 /hpf (0-5) 12/23/16 22:36 Urine Bacteria Trace (NONE) 12/23/16 22:36 Hyaline Casts 0-5 /LPF (NONE) H 12/23/16 22:36 Urine Culture Comments No culture indicated 12/23/16 22:36 X-Ray ABD: ileus vs obstruction, there are numerous air fluid levels of dilated loops of bowel. Assessment/Plan - Narrative Narrative: Small bowel obstruction Seen on X-ray and CT abdomen Keep NPO and NGT to LIS See flow sheet for NGT out-pt Antiemetics for nausea and vomiting IV morphine for pain control Protonix and continue with IVF Monitor CMP Dr Pratt consulted Pancreatic mass There is a 2.9x 3.8x 4.5cm pancreatic head mass worrisome for neoplasm. Mild hepatic steatosis. Pt with strong immediate family hx of cancer Anticipating possible endoscopy , may resume Lovenox after diagnostic Plan same as #1 12/17/16 S/P Right knee replacement Continue with PT/OT Lovenox , pt have 3 dose remains Surgical site D/I and ROMAIN Nausea, vomiting Keep NPO NGT to LIS Continue with IV antiemetics Stable chronic conditions Anemia Hyperlipidemia Hypothyroidism Code status: Full VTE ppx: Lovenox and SCD GI ppx: protonix Time 45 minutes , previous records reviewed and case discussed with Dr Tapia - Assessment/Plan (1) Small bowel obstruction Problem: Acute (2) Pancreatic mass Problem: Acute (3) Acute blood loss anemia Problem: Chronic (4) Status post total right knee replacement Problem: Acute (5) Hyperlipidemia Problem: Chronic (6) Hypothyroid Problem: Chronic
[2016-12-24 06:13] LABS: Albumin * 2.7 gm/dl (3.4-5.0); Anion Gap 10.7 mmol/L (6.8-13.8); BUN/Creatinine Ratio 21.9 (9.0-21.6); Bilirubin, Total 0.5 mg/dL (0.0-1.1); Ca. Corrected For Albumin 9.9 mg/dL (8.4-10.2); Calcium * 9.2 mg/dL (7.9-10.9); Carbon Dioxide 30.1 mmol/L (24-32.6); Potassium 3.8 mmol/L (3.4-4.6); Total Protein 6.3 gm/dL (6.2-8.2)
[2016-12-24] MEDS: ENOXAPARIN SODIUM 40 MG/0.4 ML SYRG SC SCH (12:08)
[2016-12-24] MEDS: POTASSIUM CHLORIDE 40 MEQ in DEXTROSE 5%-NORMAL SALINE 980 ML IV SCH (12:08)
--- NOTE | 2016-12-24 12:08 | CONS ---
[facility] - General Date of Service: 12/24/16 Source: patient, family, RN/MD, RN notes reviewed, old records Exam Limitations: no limitations - History of Present Illness Initial Comments: She actually started vomiting while still in the hospital after her total knee replacement, it has just continued. Abdominal xrays showed dilated small bowel and CT shows transition in the pelvis. She has been moving her bowels and has passed some gas and liquid this AM. Modifying Factors - (Worsens): Reports: eating Modifying Factors - (Improves): Reports: immobilization Associated Symptoms: loss of appetite, nausea, vomiting Allergies/Adverse Reactions: Allergies oxycodone [From Percocet] Allergy (Mild, Verified 12/23/16 18:50) Nausea Calcium Channel Blocking Agent Dilt [Calcium Channel Blocking Agents-Dieudonne] Adverse Reaction (Intermediate, Verified 12/23/16 18:49) EDEMA metoprolol tartrate [From Lopressor] Adverse Reaction (Intermediate, Verified 18:49) WHEEZING pravastatin Adverse Reaction (Mild, Verified 12/23/16 18:49) MUSCLE ACHES simvastatin [From Zocor] Adverse Reaction (Mild, Verified 12/23/16 18:49) Muscle Pain Home Medications: Home Medications Medication Instructions Recorded Last Taken Furosemide [Lasix] 20 mg PO DAILY 03/17/13 12/17/16 0600 Levothyroxine Sodium [Synthroid] 75 mcg PO DAILY 03/17/13 12/16/16 Potassium Chloride [Klor-Con M10] 10 meq PO DAILY 03/17/13 12/16/16 Cetirizine HCl [Zyrtec] 10 mg PO DAILY 12/17/16 Unknown Promethazine HCl [Phenergan 25 mg PO Q6H PRN 12/23/16 Unknown (Promethazine)] - Patient's Past Medical History Patient History - Medical: Chronic Pain, Hypothyroidism, Osteoarthritis Patient History - Cardiac/Respiratory: Atrial Fibrillation, Hyperlipidemia Patient History - Cancer: No Hx of Cancer Patient History - Surgical Procedures: Cataracts, Colonoscopy, Hysterectomy Patient History - Other: None - Family History Mother Family History - Medical: , No pertinent hx Family History - Cardiac/Respiratory: Hypertension Family History - Cancer: Breast Father Family History - Medical: Family History - Cardiac/Respiratory: Hypertension Family History - Cancer: No pertinent family hx Brother Family History - Medical: , No pertinent hx Family History - Cardiac/Respiratory: Hypertension Family History - Cancer: Kidney Sister Family History - Medical: No pertinent hx Family History - Cardiac/Respiratory: Hypertension Family History - Cancer: No pertinent family hx - Social History Living Situations: home Abuse History: No History of abuse Psych History: No pertinent hx Smoking Status: Never smoker Have you smoked in the past 12 months: No Do you dip or chew tobacco: No - Immunizations Immunizations Up to Date: Yes History of Influenza Vaccine: Yes Procedures CATARAC PHACOEMULS/ASPIR (04/06/13) COLONOSCOPY (06/10/09) DESTRUC-SHOULDER LES NEC (12/27/05) EXCIS KNEE SEMILUN CARTL (11/11/13) HEART COUNTERSHOCK NEC (04/07/02) INSERT LENS AT CATAR EXT (04/06/13) KNEE SYNOVECTOMY (11/11/13) OTH ARTHROTOMY-SHOULDER (12/27/05) REPLACE OF R KNEE JT WITH SYNTH SUB, CEMENT, OPEN APPROACH (12/17/16) SHOULDER ARTHROPLAST NEC (12/27/05) Medications - Medications Current Medications: Current Medications Pantoprazole Sodium 40 mg/ (Sodium Chloride) 100 mls @ 400 mls/hr IV HS DONNIE Stop: 01/23/17 01:16 Last Admin: 12/24/16 02:03 Dose: 400 mls/hr Morphine Sulfate (Morphine Sulfate) 2 mg IV Q4H PRN PRN Reason: Pain Stop: 01/23/17 01:10 Last Admin: 12/24/16 05:57 Dose: 2 mg Ondansetron HCl (Zofran) 4 mg IV Q6H PRN PRN Reason: Nausea And Vomiting Stop: 01/23/17 01:09 Last Admin: 12/24/16 01:28 Dose: 4 mg Review of Systems - Review of Systems Generalized/Overall Review: Present: Fatigue EENTM: Present: Other - dry mouth Respiratory: Present: No Symptoms Reported Cardiac: Present: No Symptoms Reported Abdominal: Present: Other - a little distention and discomfort, does not hurt to cough Musculoskeletal: Present: Other - knee discomfort Neurological: Present: No Symptoms Reported Skin: Present: No Symptoms Reported Physical Examination - Exam Vital Signs: Vital Signs - Last Taken Temp 36.7 C 12/24/16 10:54 Pulse 78 12/24/16 10:54 Resp 18 12/24/16 10:54 BP 141/61 12/24/16 10:54 Pulse Ox 97 12/24/16 10:54 O2 Oxygen Delivery Method Room Air Constitutional: Present: Alert, Oriented x3, Cooperative, Well developed, Well nourished, Mild distress ENT Exam: Present: normal ENT inspection, other - dry [place] Eye Exam: bilateral eye: normal inspection Neck: Present: full range of motion, normal inspection Breasts: Present: Exam deferred Respiratory: Present: normal breath sounds Cardiovascular/Chest: Present: regular rate, rhythm Abdomen: Present: other - slightly distended, but soft and no guarding. There are BS but cavernous. no guarding /Rectal: Present: Exam deferred Extremity: Present: normal inspection Skin Exam: Present: normal color Neurologic: Present: maintenance planner II-XII nml as tested, no motor/sensory deficits Appearance: Present: appropriate appearance, appropriate insight Eye contact: Present: cooperative, good eye contact, normal speech Thoughts: Present: normal thought pattern - Results and Findings: Lab/Microbiology results last 24 hrs: Abnormal/Pending Laboratory Last 24 HRS 12/24/16 05:55 Plasma Sodium 143 H BUN/Creatinine Ratio 21.9 H Random Glucose 158 H AST 84 H ALT [address] shows proximal small bowel distention. There is a mass in the head of the pancreas. - Assessments/Findings (1) Pancreatic mass Diagnosis(s): Further studies will need to be done. She did have elevated LFT's, have decreased since yesterday Problem: Acute (2) Small bowel obstruction Diagnosis(s): Whether this is ileus or obstruction is unclear. NG tube advanced slightly as suggested. Would manage this with NG tube until pancreatic process is determined Problem: Acute
[2016-12-25] MEDS: MORPHINE SULFATE 2 MG/ML DISP.SYRIN IV PRN ×5 (00:15→19:57)
[2016-12-25] MEDS: POTASSIUM CHLORIDE 40 MEQ in DEXTROSE 5%-NORMAL SALINE 980 ML IV SCH ×3 (00:48→09:54)
[2016-12-25 05:35] LABS: Hematocrit 32.7 % (37.0-47.0); Hemoglobin 10.4 gm/dL (12.5-16.0); Mean Cell Volume 89.3 fl (78-100); Mean Corpuscular Hemoglobin 28.4 pg (27-31); Mean Corpuscular Hgb Conc 31.8 g/dl (32-36); Mean Platelet Volume 9.5 fl (6.0-9.5); Neutrophil # 6.4 K/mm3 (1.3-6.0); Neutrophil % 67.6 % (42-75.0); Platelet Count 279 K/mm3 (150-450); Red Blood Count 3.66 M/mm3 (4.2-5.4); White Blood Count 9.5 K/mm3 (4.0-10.5)
[2016-12-25 05:50] LABS: Albumin * 2.6 gm/dl (3.4-5.0); Anion Gap 10.6 mmol/L (6.8-13.8); BUN/Creatinine Ratio 14.8 (9.0-21.6); Bilirubin, Total 0.5 mg/dL (0.0-1.1); Calcium * 9.2 mg/dL (7.9-10.9); Carbon Dioxide 27.5 mmol/L (24-32.6); Potassium 4.1 mmol/L (3.4-4.6)
[2016-12-25] MEDS: ONDANSETRON HCL/PF 2 MG/ML VIAL IV PRN (07:12)
[2016-12-25] MEDS: TETRACAINE/BENZOCAINE/BUTAMBEN 20 SPRAY BTL TP PRN (10:30)
--- NOTE | 2016-12-25 10:55 | PN ---
Subjective - Date and Time Seen Date: 12/25/16 Time: 10:52 Subjective Narrative: feels a little better, passing some gas. C/O throat pain due to NG tube. having difficult IV access. Able to ambulate. On continuous intermittent suction. Objective - Review of Systems Respiratory: Denies: Cough, Shortness of Breath Cardiac: Denies: Chest Pain, Edema Abdominal: Denies: Nausea, Vomiting - Vitals Vitals: Last Vital Signs Temp 36.7 C 12/25/16 10:37 Pulse 77 12/25/16 10:37 Resp 19 12/25/16 10:37 BP 146/62 12/25/16 10:37 Pulse Ox 95 12/25/16 10:37 - Abnormal Lab Findings Abnormal Lab Findings: Laboratory Tests 12/23/16 12/25/16 19:10 05:33 WBC 10.8 H 9.5 Hgb 12.5 10.4 L Hct 38.5 32.7 L Plt Count 399 279 12/23/16 12/24/16 12/25/16 19:10 05:55 05:33 Plasma Sodium 141 143 H 143 H Potassium 3.8 3.8 4.1 Chloride 101 105 108 H Carbon Dioxide 29.8 30.1 27.5 BUN 18 16 9 Creatinine 0.92 0.73 0.61 Est GFR (Non-Af Amer) 63 83 D 102 D Random Glucose 139 H 158 H 152 H Calcium Adj for Albumin 9.7 9.9 10.0 Total Bilirubin 0.8 0.5 0.5 AST 143 H 84 H 102 H ALT 171 H 141 H 150 H Alkaline Phosphatase 180 H 146 139 Total Protein 7.2 6.3 6.0 L Albumin 3.3 L 2.7 L 2.6 L Lipase 183 X-ray of abdomen flat and upright: 12/25/2016: Impression: 1. Persistent abnormal bowel gas pattern suggestive of a partial small bowel obstruction mostly in the central abdomen. 2. Moderate stool retention 3. Small RT pleural effusion faint bibasilar opacities that may represent atelectasis. - Exam Constitutional: Present: Elderly, Obese - alert and oriented x3 ,does not look toxic with NG tube on intermittent suction ENT Exam: Present: hearing grossly normal Neck: Present: normal inspection, trachea midline Respiratory: Present: lungs clear, normal breath sounds, no accessory muscle use Cardiovascular/Chest: Present: regular rate, rhythm. Absent: tachycardia Abdomen: Present: soft, nontender - DIMISHED BOWEL SOUNDS, obese. Absent: guarding, rebound tenderness Extremity: Present: normal range of motion, normal inspection, no pedal edema - Recent RT knee replacement. Skin Exam: Present: warm/dry. Absent: pallor Eye contact: Present: cooperative, good eye contact, normal speech Assessment/Plan Plan Narrative: 1. Partial small bowel obstruction: Patient admitted on 12/24/16. On IV fluids D5NS with KCl with 40 mEq at 150 ml/ hour and intermittent suction. Can have ice chips. Today's abdominal flat and upright shows occasional fluid levels and colonic distention with stool retention. Discussed in detail with Dr. Briones - trial of clamping NG for 2 hours and suction for one hour; bisacodyl 10 mg 1, fleets enema 1, trial of metoclopramide 5 mg IV every 6 hours. Repeat CBC, CMP flat and upright in a.m. 2. Abnormal LFTs: Mild elevation in abnormal LFTs: Thought to be due to hydrocodone/acetaminophen which was discontinued on admission.[Given due to RT TKA on 12/19/16]. Patient getting morphine sulfate for pain. Etiology currently undetermined. 3. Pancreatic mass on CT w/ contrast: 4 cm x3.3 cm mass seen in the head of the pancreas which needs to be further evaluated by EUS. 4. RT TKA: Done on 12/17/16. on Lovenox 40 mg subcutaneous daily for 10 days. 5. Poor IV access: PICC line placement today. 6. Discharge planning: Discussed in detail regarding pancreatic mass, PSBO/ileus with Dr. 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 Dr. Briones feels she is will require a higher level of care if her bowel obstruction will not resolve given the pancreatic mass and abnormal liver function tests. Discussed with the family that she may be transferred on 12/26/16 if she does not improve. Time spent with the family/Dr. Briones etc. more than 40 minutes[in discussing test results, treatment options and plan of care].
[2016-12-25] MEDS ORDERED: BISACODYL 5 MG TABLET.DR PO ONE ×2 (11:15→14:10)
--- NOTE | 2016-12-25 12:37 | OR ---
Anesthesia Procedure Note - Anesthesia Procedure Note Date of Service: 12/25/16 Narrative: Vital Signs - Last Taken Temp 36.7 C 12/25/16 10:37 Pulse 77 12/25/16 10:37 Resp 19 12/25/16 10:37 BP 146/62 12/25/16 10:37 Pulse Ox 95 12/25/16 10:37 O2 Oxygen Delivery Method Room Air 12/25/16 12:35 ANESTHESIA PROCEDURE NOTE Date of Procedure: 12/25/2016. Time of procedure: 1120. Performed by: Champ Day CRNA Public Policy Analyst: None. Preprocedure diagnosis: Need for central IV access. Post procedure diagnosis: Same. Procedure: Right basilic vein ultrasound guided PICC line insertion. Indications: This is 76-year-old female who is in the hospital in need of a PICC line for IV and TPN therapy. Findings: See below. Details of the procedure: Under ultrasound guidance the right basilic vein was visualized. Skin over the intended target site was cleansed with ChloraPrep. The patient was draped in sterile fashion. The skin over the intended target site was anesthetized with 1% lidocaine. Under direct ultrasound visualization the vein was cannulated with a 22-gauge IV catheter. Dark red blood was noted from the catheter. A 0.45 mm guidewire was inserted through the IV catheter and IV catheter was removed intact. A skin guzman was made at the guidewire insertion site with a scalpel. The 5 [place] vessel dilator was inserted over the guidewire and the guidewire was removed intact. Dark red blood was noted from the vessel dilator. The PICC line was inserted to a depth of 40 cm and the vessel dilator was peeled away. Dark red blood was noted from both ports of the PICC line. PICC line was flushed with sterile normal saline solution. A sterile dressing was then applied over the PICC line insertion site. EBL: Minimal. Fluids: N/A. Specimen: N/A. Post procedure condition: The patient tolerated the procedure well. No complications were noted. Chest x-ray revealed the placement of the PICC line to be in the superior vena cava. Thank you for this consultation. Champ Day CRNA
[2016-12-25] MEDS: METOCLOPRAMIDE HCL 5 MG/ML VIAL IV SCH ×3 (14:15→22:29)
[2016-12-25] MEDS: ENOXAPARIN SODIUM 40 MG/0.4 ML SYRG SC SCH (14:18)
[2016-12-25] MEDS: POTASSIUM CHLORIDE 40 MEQ in DEXTROSE 5%-0.5 NORMAL SALINE 1,000 ML IV SCH ×2 (14:22→21:48)
[2016-12-25] MEDS: LEVOTHYROXINE SODIUM IV SCH (14:39)
[2016-12-25] MEDS ORDERED: MINERAL OIL 1 ENEMA BTL RC ONE (16:05)
[2016-12-25] MEDS: LIDOCAINE HCL 100 APPL BTL MM PRN (19:37)
[2016-12-25] MEDS: PANTOPRAZOLE SODIUM 40 MG in NORMAL SALINE 100 ML IV SCH (21:42)
[2016-12-26] MEDS: MORPHINE SULFATE 2 MG/ML DISP.SYRIN IV PRN (02:25)
[2016-12-26] MEDS: ONDANSETRON HCL/PF 2 MG/ML VIAL IV PRN (02:33)
[2016-12-26] MEDS: POTASSIUM CHLORIDE 40 MEQ in DEXTROSE 5%-0.5 NORMAL SALINE 1,000 ML IV SCH (04:54)
[2016-12-26] MEDS: LIDOCAINE HCL 100 APPL BTL MM PRN ×2 (05:01→09:12)
[2016-12-26] MEDS: METOCLOPRAMIDE HCL 5 MG/ML VIAL IV SCH ×2 (05:02→11:27)
[2016-12-26 05:54] LABS: Hematocrit 34.5 % (37.0-47.0); Hemoglobin 11.2 gm/dL (12.5-16.0); Mean Cell Volume 88.9 fl (78-100); Mean Corpuscular Hemoglobin 28.9 pg (27-31); Mean Corpuscular Hgb Conc 32.5 g/dl (32-36); Mean Platelet Volume 9.3 fl (6.0-9.5); Neutrophil # 7.9 K/mm3 (1.3-6.0); Neutrophil % 71.5 % (42-75.0); Platelet Count 286 K/mm3 (150-450); Red Blood Count 3.88 M/mm3 (4.2-5.4); Red Cell Distribution Width 12.7 % (11.5-14.0)
[2016-12-26 06:23] LABS: Albumin * 2.7 gm/dl (3.4-5.0); Anion Gap 9.4 mmol/L (6.8-13.8); BUN/Creatinine Ratio 6.3 (9.0-21.6); Bilirubin, Total 0.5 mg/dL (0.0-1.1); Calcium * 9.3 mg/dL (7.9-10.9); Carbon Dioxide 28.2 mmol/L (24-32.6); Potassium 4.6 mmol/L (3.4-4.6); Total Protein 6.3 gm/dL (6.2-8.2)
[2016-12-26] MEDS ORDERED: DEXTROSE 5%-0.5 NORMAL SALINE 1,000 ML IV PRN (09:04)
[2016-12-26] MEDS: TETRACAINE/BENZOCAINE/BUTAMBEN 20 SPRAY BTL TP PRN (09:12)
[2016-12-26] MEDS: LEVOTHYROXINE SODIUM IV SCH (09:31)
[2016-12-26 10:21] VITALS: BP 151/69
[2016-12-26] MEDS: ENOXAPARIN SODIUM 40 MG/0.4 ML SYRG SC SCH (11:27)
--- NOTE | 2016-12-26 14:31 | DS ---
(1) Small bowel obstruction Problem: Acute (2) Pancreatic mass Problem: Acute (3) Osteoarthritis Diagnosis(s): LT TKA-2010 ; RT TKA-12/17/16 Problem: Chronic (4) Status post ablation of atrial fibrillation Diagnosis(s): in 2001 Problem: Chronic (5) Hypothyroidism Problem: Chronic Qualifiers: Hypothyroidism type: unspecified Qualified Code(s): E03.9 - Hypothyroidism , unspecified Description of Stay: DATE OF ADMISSION: 12/24/2016. DATE OF DISCHARGE/TRANSFER: 12/26/2016. DIAGNOSTICS: CT ABDOMEN/PELVIS W/C CONTRAST 03/25/2016. DISCHARGE SUMMARY: Codi Hurtado is a 76 yr old WF with a H/O hypothyroidism, OA [S/P LT TKA- 2010; RT TKA on 12/17/2016], A. fib[ s/p ablation in 2001], HLD who was admitted through the ER for partial small bowel obstruction as she had a history of nausea, vomiting and abdominal discomfort for the last 3 days. Patient underwent a CT of the abdomen and pelvis w/c : 1. Mass in head of the pancreas measuring 43.3 cm. 2. Numerous loops of bowel with air-fluid levels compatible with small bowel obstruction. 3. Small bowel feces sign within the left lower abdomen. 4. Diverticulosis. 5. No free air/fluid fluid. NG tube was placed and hooked to intermittent suction. She was placed on IV fluids. Patient was given bisacodyl 10 mg by mouth 1, fleets enema RC and metoclopramide 5 mg IV every 6 hours x 24 H without improvement. There was no improvement in her abdominal films. Transaminases continued to remain elevated. DVT prophylaxis was in the form of enoxaparin 40 mg SubQ daily. Patient ambulated well with nursing and PT. Prior surgical history: JULIO plus BSO in 1994. Patient is being transferred to [facility] to the care of Dr. David Cole [ General Surgery] who is accepting the patient as she requires a higher level of care. Procedures Performed: none Results and Findings: Laboratory Tests 12/23/16 12/25/16 12/26/16 19:10 05:33 05:35 WBC 10.8 H 9.5 11.0 H Hgb 12.5 10.4 L 11.2 L Hct 38.5 32.7 L 34.5 L Plt Count 399 279 286 Laboratory Tests 12/23/16 12/24/16 12/25/16 12/26/16 19:10 05:55 05:33 05:35 Plasma Sodium 141 143 H 143 H 139 Potassium 3.8 3.8 4.1 4.6 Chloride 101 105 108 H 106 Carbon Dioxide 29.8 30.1 27.5 28.2 BUN 18 16 9 4 D Creatinine 0.92 0.73 0.61 0.63 Est GFR (Non-Af Amer) 63 83 D 102 D 98 Random Glucose 139 H 158 H 152 H 129 Calcium Adj for Albumin 9.7 9.9 10.0 10.0 Total Bilirubin 0.8 0.5 0.5 0.5 AST 143 H 84 H 102 H 84 H ALT 171 H 141 H 150 H 164 H Alkaline Phosphatase 180 H 146 139 152 Total Protein 7.2 6.3 6.0 L 6.3 Albumin 3.3 L 2.7 L 2.6 L 2.7 L Lipase 183 Abdominal flat and upright: 12/23/16:19:24: 1. Ileus versus obstruction. No free air. Clinical correlation. CT ABD/PELVIS W/C: 12/23/16: 21:42: IMPRESSION: 1. Mass in the region of the head of the pancreas measuring 4cm X 3.3 cm. 2. Small bowel feces within the left lower abdomen; numerous loops of bowel demonstrating pathological dilatation and air fluid levels; stomach is distended. Findings compatible with small bowel obstruction. 3. Scattered diverticulosis. No free fluid/free air. ABDOMEN flat and upright: 12/24/2016: 7:07: IMPRESSION: 1. Dilated small bowel with air-fluid levels suggesting a partial small bowel obstruction. 2. Distal NG tube within the proximal stomach, recommend advancement of 10 cm. ABDOMEN flat and upright: 12/25/2016: 7:00: IMPRESSION: 1. Satisfactory positioning of the medical support device. Persistent abnormal bowel gas pattern with findings suggestive of a partial small bowel obstruction. 2. Faint bibasilar opacities that may represent atelectasis. Blunting of the right lateral costophrenic angle, may represent small right-sided pleural effusion. Discharge Disposition: [facility] Disposition: Transferred to other hospital Condition: Undetermined Referrals: Fatoumata Rockwell MD [Primary Care Provider] - Consultation Done:: Dr. Norman Briones [General Surgery]. Complete Home Medications List: Complete Home Medication List: Furosemide [Lasix] 20 mg PO DAILY 03/17/13 Levothyroxine Sodium [Synthroid] 75 mcg PO DAILY 03/17/13 Potassium Chloride [Klor-Con M10] 10 meq PO DAILY 03/17/13 Cetirizine HCl [Zyrtec] 10 mg PO DAILY 12/17/16 Enoxaparin Sodium [Lovenox] 40 mg SC Q24H #7 disp.syrin 12/19/16 HYDROcodone/ACETAMINOPHEN [[place] 5-325] 1 each PO Q3H PRN #60 tablet 12/19/16 Morphine Sulfate [Ms Contin] 15 mg PO Q12H #20 tablet.sa 12/19/16 Sennosides/Docusate Sodium [Senokot-S] 2 tab PO HS #60 tablet 12/19/16 Promethazine HCl [Phenergan (Promethazine)] 25 mg PO Q6H PRN 12/23/16
== END 2016-12-26 12:20 | disposition short-term general hospital (02) | DRG 390 ==
LOC: ER 18:41 → MS 23:40
PROVIDERS: ADMIT Nurse Practitioner; ATTEND Internal Medicine
PROC: 02HV33Z Insertion of Infusion Device into Superior Vena Cava, Percutaneous Approach (ICD-10-PCS; principal; 2016-12-25)
PROC: B548ZZA Ultrasonography of Superior Vena Cava, Guidance (ICD-10-PCS; 2016-12-25)
DX: K56.600 Partial intestinal obstruction, unspecified as to cause (principal); R74.0 Nonspecific elevation of levels of transaminase and lactic acid dehydrogenase [LDH]; K57.10 Diverticulosis of small intestine without perforation or abscess without bleeding; K86.89 Other specified diseases of pancreas; K76.0 Fatty (change of) liver, not elsewhere classified; E78.5 Hyperlipidemia, unspecified; E03.9 Hypothyroidism, unspecified; D64.9 Anemia, unspecified; Z79.01 Long term (current) use of anticoagulants
CPT/HCPCS: 36415; 71010; 74020; 74177; 80053; 81001; 83690; 84484; 85025; 93005; 96374; 96375; 97110; 97116; 97161; 97530; 99285; J2405